=== PATIENT | male | born 1965 | race Caucasian/White ===

== ENCOUNTER → 2016-06-04 | Outpatient (CLI) | payer MEDICAID ==
[~2016-06-04] MED LIST: ACETAMINOPHEN500 M3 PO; ALEVE220 MG PO; ALPRAZOLAM0.5 M3 PO; ASPIR-LOW81 MG PO; ASPIRIN 325MG325 MG PO; ASPIRIN 81MG TA81 MG PO; BACTRIM 400 MG-1 TAB PO; BACTRIM DS 8001 TA1 PO; BACTRIM DS 8001 TAB PO; BIAXIN 500MG T500 MG PO; BIAXIN500 MG PO; CIPRO 500MG TA500 MG PO; CLINDAMYCIN HC300 MG PO; CORTISPORI7.5 ML/BOT OP; DICLOFENAC POT.50 MG PO; EC NAPROSYN500 MG PO; ETODOLAC400 MG PO; FLEXERIL10 M1 PO; FLEXERIL10 MG PO; GABAPENTIN 400400 M1 PO; GOOD SENSE OMEP20 MG PO; HYDROCODONE-APA1 TA1 PO; HYDROCODONE/ACE1 TA5 PO; HYDROCODONE1 TABLET PO; IBU-8800 MG PO; IBUPROFEN600 MG PO; KEFLEX 500MG.500 MG PO; LEVAQUIN 500 M500 MG PO; LODINE400 MG PO; LORTAB 5/500 501 TAB PO; LORTAB 500 MG-71 TAB PO; MEDROL 4MG. DOSE4 MG PO; MOTRIN 600MG.600 MG PO; MOTRIN600 M1 PO; MOTRIN600 MG PO; NAPROSYN 500MG500 MG PO; NAPROXEN DELAY500 MG PO; NAPROXEN EC500 MG PO; NICOTINE PATCH;21 MG TD; NOMEDS XX; NORCO 325 MG-51 TAB PO; NORFLEX100 MG PO; Oxycodone5 MG NG; PERCOCET 325 MG1 TA3 PO; PERCOCET 5/3251 EACH PO; PHENERGAN 25MG.25 M1 PO; PREDNISONE 20MG20 MG PO; ROBAXIN-750750 MG PO; SEPTRA 400 MG-81 TAB PO; SEPTRA DS 800 M1 TAB PO; SKELAXIN 800MG800 MG PO; SOMA250 MG PO; SULFAMETHOXAZOL1 TA6 PO; TORADOL10 M1 NG; TORADOL10 M1 PO; TRAMADOL 50MG T50 M1 PO; TRAMADOL50 M1 PO; ULTRAM 50 MG TA50 MG PO; ULTRAM50 MG PO; VIBRAMYCIN 100100 MG PO; VICODIN 5/500 T1 TAB PO; VICODIN 7.5/501 EACH PO; VISTARIL25 MG PO; VOLTAREN75 MG PO; ZITHROMAX Z PA250 MG PO; ZOFRAN4 MG PO; [UNRECOGNIZED DRUG - OTHER] PO
--- NOTE | 2016-06-05 13:59 | RADIOLOGY REPORT PS360 ---
CERVICAL SPINE 4 OR 5 VIEWS ORDERING PHYSICIAN : Nato Hollis MD PATIENT AGE: 50 years GENDER: Male INDICATION: CERVICAL DISC DISEASE Neck pain, cervical disc disease. TECHNIQUE: Five-view cervical spine series COMPARISON: Previous CT cervical spine 09/07/2014 also 2014 plain film C-spine FINDINGS Vertebral bodies intact with no fracture nor lesion. Slight reversal of normal cervical curvature is been seen before and stable. Mild multilevel degenerative disc changes with anterior marginal osteophytes C3-C7 most evident at C 5/6. Posterior spondylosis is been noted on previous CT as well noting the posterior hypertrophic ridging particularly evident at C 3/4 with spurring most pronounced to the left encroach upon the left foramen on that prior CT. These spurs are nicely seen on plain film as well Generous encroachment upon the left foramen C3/4. There is also spondylosis with posterior ridging and bilateral foraminal encroachment due to spurs at C5/6, left greater the right. Again similar appearance to the 2014 CT study. C1-C2 relationships appear normal. Prevertebral soft tissues appear normal. Facets appear intact with only scant degenerative changes. Apices the lungs are clear. Patient edentulous. IMPRESSION: Slight reversal of cervical curvature again noted stable Findings similar to August 2014 CT & Cspine series 2013. No significant interval change. Most notable are the degenerative disc changes & cervical spondylosis at the C3/4 level. Leftward spurring yields left foraminal encroachment most pronounced to the left at this level Less pronounced degenerative disc changes/spondylosis at C5/6 yielding mild bilateral foraminal encroachment again noted
== END ==
LOC: RAD 08:15
DX: M50.90 Cervical disc disorder, unspecified, unspecified cervical region (principal)

== ENCOUNTER → 2016-08-02 | Outpatient (CLI) | payer MEDICAID ==
--- NOTE | 2016-08-02 23:04 | RADIOLOGY REPORT PS360 ---
ORBIT Ordering Physician: Fabiano Blake MD Patient Age: 51 years: Male HISTORY: RULE OUT METAL FOREIGN BODY FOR MRI TECHNIQUE: Cee' view orbits looking up and looking down FINDINGS No metallic nor radiopaque foreign body is seen at either orbit. Both right and left globe appears satisfactory with no radiopaque foreign body. The visualized maxillary sinus frontal sinuses clear mastoid air cells unremarkable. (Orbital rims appear satisfactory IMPRESSION: No metallic radiopaque foreign body in either orbit. Patient cleared for MRI. Visualized paranasal sinuses unremarkable
--- NOTE | 2016-08-03 12:42 | RADIOLOGY REPORT PS360 ---
MRI-C-SPINE W/O, MRI-3D RENDERING/MYELOGRAM Ordering Physician: Fabiano Blake MD Patient Age: 51 years: Male HISTORY: NECK PAINbilateral arm pain numbness and tingling. Symptoms one year TECHNIQUE: Sagittal STIR, T1, T2, axial T1 and T2. On 1.5T Siemens wide bore MRI. 3-D MR myelogram image set obtained & performed on MRI workstation. Additional sagittal thin section T2 weighted dataset obtained from this latter acquisition as well (---76 CPT) COMPARISON. 5 view Plain film C-spine to June 04, 2016 FINDINGS : Slight reversal normal cervical curvature due to the multilevel degenerative disc changes & cervical spondylosis. Cranial cervical junction appears normal. C2/3 disc intact. C3/4. Degenerative disc space narrowing with cervical spondylosis fairly pronounced to the left. Very large leftward osteophyte spur/ broad-based hard disc.. This hard disc prominently effacing thecal sac to the left & focally effaces and flattens flattening the the left anterior aspect of the cervical cord. This also yields moderate/generous encroachment upon left foramen these features evident on previous plain film C-spine to 1717 C4/5.Disc intact Minor posterior endplate hypertrophy. Posterior hypertrophic ridging the left with uncovertebral joint hypertrophy, which slightly flattens the anterior aspect of the thecal sac and slightly effaces left aspect cervical cord.. Axial image 32 sagittal and C5-C6. Mild disc space narrowing most evident to the right. Diffuse posterior endplate hypertrophy. There is diffuse posterior hypertrophic ridging with additional uncovertebral joint hypertrophy to the left > right.. Left foraminal and recess encroachment on left greater than right. Mild Central canal stenosis Spinal canal measures 8.5 mm AP reflecting. C6/7 degenerative disc space narrowing with reactive endplate changes to the right. Prominent fairly large rightward disc herniation, effaces the cervical cord to the right. This disc protrusion extends up to nearly 5 mm posterior. & nearly 10 mm transverse measurement at its right paracentral base.. Prominent central canal stenosis results due to these features. Prominent right recess encroachment. Prominent encroachment upon entry right foramen... Neurosurgical consult warranted. C7/T1. Disc intact 3-D MR myelogram image set shows spinal stenosis most pronounced at the C6/7 level due to the prominent rightward disc herniation. Also specifically note prominent indentation upon the thecal sac to the left due to the large hard disc at C3/4. Evident with mild anterior indentation upon the thecal sac also noted at C5, C6, C4/5 level reflecting above features IMPRESSION: Prominent Multilevel degenerative disc changes & disc protrusions: Most significant findings at C6/7 to the right: Prominent, large Rightward Disc Herniation C 6/C7. Prominent effaces right aspect of the cervical cord. & Yields spinal stenosis & encroachment entry right foramen..*Requires Neurosurgical Consult.. C3/4 with large hard disc & spurring to the left- effaces & flattens the left aspect of cervical cord and thecal sac, with spurring also encroach upon the left foramen --Less prominent findings also noted at C 4/5 and C5-C6: C5-C6. Posterior hypertrophic ridging with uncovertebral joint hypertrophy flattening the cervical cord. Mild central canal stenosis with mild bilateral foraminal encroachment C4/5 posterior hypertrophic ridging/ hard disc the to the left, yielding borderline central canal stenosis along with slight flattening left aspect of cervical cord
== END ==
LOC: RAD 13:56
DX: M54.2 Cervicalgia (principal); H05.53 Retained (old) foreign body following penetrating wound of bilateral orbits